=== PATIENT | male | born 1995 | race Caucasian/White ===

== ENCOUNTER 2017-08-18 12:54 | Emergency (ER) | payer SELFPAY ==
[~2017-08-18] VITALS: Ht 182.9 cm; Wt 79.4 kg
--- OUTSIDE RECORDS SUMMARY | ~2017-08-18 | XMS | Clinical Summary ---
Demographics + + + | Address | [address] | | | [place] [address] | + + + | Home Phone | | + + + | Preferred Language | Unknown | + + + | Marital Status | Single | + + + | Methodist Affiliation | NRP | + + + | Race | White | + + + | Ethnic Group | Not or | + + + Author + + + | Author | [facility] | + + + | Organization | [facility] | + + + | Address | Unknown | + + + | Phone | Unavailable | + + + Support +------+ + + + + | Name | Relationship | Address | Phone | +------+ + + + + ECON | [address] | | [place] [address] | +------+ + + + + Care Team Providers + +------+-------+ | Care Jointer Machine Operator Name | Role | Phone | + +------+-------+ | Matt Escobedo DO | PP | tel | + +------+-------+ Source Comments [facility] Allergies No Known Allergies Current Medications + + +---------+---------+------+------+-------+ | Prescription | Sig. | Disp. | Refills | Star | End | Statu | | | | | | t | Date | s | | | | | | Date | | | + + +---------+---------+------+------+-------+ | guar gum | Take 1 packet by | 14 | 0 | 02/2 | | Activ | | (BENEFIBER) oral | mouth once daily as | packet | | 03/22 | | e | | packet | needed | | | 14 | | | | | (constipation, per | | | | | | | | bowel protocol). | | | | | | + + +---------+---------+------+------+-------+ | polyethylene | Take 17 g by mouth | 119 g | 0 | 02/2 | | Activ | | glycol 17 gram/dose | once daily as needed | | | 8/20 | | e | | oral powder | (No BM in past 3 | | | 14 | | | | | days). | | | | | | + + +---------+---------+------+------+-------+ | senna-docusate | Take 1 tablet by | 60 | 0 | 02/2 | | Activ | | 8.6-50 mg oral | mouth two times | tablet | | 8/20 | | e | | tabletIndications: | daily. Indications: | | | 14 | | | | constipation | CONSTIPATION | | | | | | + + +---------+---------+------+------+-------+ | | Take 1 tablet by | 60 | 0 | 09/2 | | Activ | | HYDROcodone-acetamin | mouth every six | tablet | | 2/20 | | e | | ophen (NORCO) 5-325 | hours as needed (for | | | 14 | | | | mg oral tablet | pain.). Not to | | | | | | | | exceed 5 tablets per | | | | | | | | 24 hours. | | | | | | + + +---------+---------+------+------+-------+ Active Problems + + + | Problem | Noted Date | + + + | Chronic osteomyelitis of pelvic region (HCC) | 10/10/2013 | + + + | Encounter for long-term (current) use of antibiotics | 09/30/2013 | + + + + + | Overview: 09/2013 osteomyelitis of the pelvis 730.25 | + + + + + | Pelvic pain in male | 09/28/2013 | + + + | Neoplasm of unspecified nature of bone, soft tissue, and skin | 09/23/2013 | + + + Family History + + +------+ + | Medical History | Relation | Name | Comments | + + +------+ + | Cancer | Maternal | | | | | Grandmoth | | | | | er | | | + + +------+ + | Heart Disease | Maternal | | | | | Grandmoth | | | | | er | | | + + +------+ + | Alcohol/Drug | Paternal | | | | | Grandfath | | | | | er | | | + + +------+ + + +------+--------+ + | Relation | Name | Status | Comments | + +------+--------+ + | Maternal Grandmother | | | | + +------+--------+ + | Paternal Grandfather | | | | + +------+--------+ + Social History + +-------+ +--------+------+ | Tobacco Use | Types | Packs/Day | Years | Date | | | | | Used | | + +-------+ +--------+------+ | Never Smoker | | | | | + +-------+ +--------+------+ + +---+---+---+ | Smokeless Tobacco: | | | | | Never Used | | | | + +---+---+---+ + + | Tobacco Cessation: Counseling Given: Yes | + + + + +---------+ + | Alcohol Use | Drinks/We | oz/Week | Comments | | | ek | | | + + +---------+ + | No | | | | + + +---------+ + + + + | Sex Assigned at | Date Recorded | | | | + + + | Not on file | | + + + Last Filed Vital Signs + + + + | Vital Sign | Reading | Time Taken | + + + + | Blood Pressure | 138/81 | 10/16/2014 12:47 PM PDT | + + + + | Pulse | 62 | 10/16/2014 12:47 PM PDT | + + + + | Temperature | 36.6 C (97.8 F) | 10/16/2014 12:47 PM PDT | + + + + | Respiratory Rate | 18 | 10/16/2014 12:47 PM PDT | + + + + | Oxygen Saturation | 100% | 09/30/2013 12:01 PM PST | + + + + | Inhaled Oxygen | - | - | | Concentration | | | + + + + | Weight | 99.8 kg (220 lb) | 10/16/2014 12:47 PM PDT | + + + + | Height | 185.4 cm (6' 1") | 10/16/2014 12:47 PM PDT | + + + + | Body Mass Index | 29.03 | 10/16/2014 12:47 PM PDT | + + + + Plan of Treatment + + + + + | Health Maintenance | Due Date | Last Done | Comments | + + + + + | INFLUENZA VACCINE | | | | | (FLU SHOT) | 7 | | | + + + + + Implants + +------+--------+ +--------+--------+--------+ | Implanted | Type | Area | Manufacture | Device | Expira | Model | | | | | r | | tion | / | | | | | | Identi | Date | Serial | | | | | | fier | | / Lot | + +------+--------+ +--------+--------+--------+ | [place] [employer] Bioknotless - | | Right: | STU & | | 01/30/ 604191 | | [id number]: Qty: 1 on | | | STU | | 2014 | / | | 04/29/2013 by Urban Freeman | | Should | DEPKARISHMA | | | /[id number] | | MD Willis | | er | | | | 55 | + +------+--------+ +--------+--------+--------+ | [place] [employer] Shannanless - | | Right: | STU & | | 03/02/ 608287 | | [id number]: Qty: 1 on | | | STU | | 2014 | / | | 04/29/2013 by Urban Freeman | | Should | DO | | | /[id number] | | MD Willis | | er | | | | 51 | + +------+--------+ +--------+--------+--------+ Results Not on filefrom Last 3 Months
--- OUTSIDE RECORDS SUMMARY | ~2017-08-18 | XMS | Clinical Summary ---
Demographics + + + | Address | [address] | | | [place] [address] | + + + | Home Phone | | + + + | Preferred Language | Unknown | + + + | Marital Status | Single | + + + | Sabianism Affiliation | NRP | + + + [address] | | [place] [address] | +------+ + + + + Care Team Providers + +------+-------+ | Care Agency Sales Management Assistant Name | Role | Phone | + +------+-------+ | Matt Escobedo DO | PP | tel | + +------+-------+ Source Comments [facility] Allergies No Known Allergies Current Medications + [...] / Lot | + +------+--------+ +--------+--------+--------+ | [place] [employer] - | | Right: | STU & | | 01/30/ 691154 | | [id number]: Qty: 1 on | | | STU | | 2014 | / | | 04/29/2013 by Urban Freeman | | Should | DEPKARISHMA | | | /[id number] | | MD Willis | | er | | | | 55 | + +------+--------+ +--------+--------+--------+ | [place] [employer] Shannanless - | | Right: | STU & | | 03/02/ 256215 | | [id number]: Qty: 1 on | | | STU | | 2014 | / | | 04/29/2013 by Urban Freeman | | Should | DO | | | /[id number] | | MD [place] | | er | | | | 51 | + +------+--------+ +--------+--------+--------+ Results Not on filefrom Last 3 Months
[~2017-08-18 12:54] MED LIST: AUGMENTIN 875-1 EACH PO; CEFTRIAXONE2 G2 IV; CEFUROXIME500 MG PO; CEPHALEXIN500 MG PO; CLINDAMYCIN HC300 MG PO; DICLOFENAC SODI75 MG PO; DICLOFENAC SODIUM 1%; GABAPENTIN300 MG PO; MIRTAZAPINE15 MG PO; NAPROXEN375 MG PO; NORCO 5-325 TA1 EACH PO; OSTEO BI-FLEX1 EAC2 PO; OXYCODONE HCL5 MG PO; TRAMADOL HCL50 MG PO; VANCOCIN HCL125 MG IV; VICODIN 5-5001 EACH PO; WELLBUTRIN XL300 MG PO
== END 2017-08-18 13:22 | disposition home or self-care (01) ==
LOC: ED 12:54
DX: K08.89 Other specified disorders of teeth and supporting structures (principal)